=== PATIENT | male | born 1945 | race Asian ===

== ENCOUNTER 2018-07-23 23:25 | Emergency (ER) | payer MEDICARE, MEDICAID ==
[~2018-07-23] VITALS: Ht 154.9 cm; Wt 58.4 kg
[2018-07-23 23:31] VITALS: BP 170/72
[2018-07-23] MEDS ORDERED: meclizine 12.5mg tablet PO ONE (23:45)
[2018-07-23] MEDS ORDERED: ondansetron 4mg rapidly disintigrating tab PO ONE (23:45)
[2018-07-24] MEDS ORDERED: MECL-111 PO (00:13)
[2018-07-24] MEDS ORDERED: ONDA4TAB9 PO (00:13)
== END 2018-07-24 01:08 | disposition home or self-care (01) ==
LOC: ER 23:26
DX: R42 Dizziness and giddiness (principal); Z79.899 Other long term (current) drug therapy
CPT/HCPCS: 99283; J8597

== ENCOUNTER 2020-08-22 11:24 | Emergency (ER) | payer MEDICARE, MEDICAID ==
[~2020-08-22] VITALS: Ht 167.6 cm; Wt 56.0 kg
[~2020-08-22 11:24] MED LIST: MECL-159 PO
== END 2020-08-22 12:39 | disposition home or self-care (01) ==
LOC: ER 11:25
DX: R05 Cough (principal); M79.10 Myalgia, unspecified site; R42 Dizziness and giddiness; E11.9 Type 2 diabetes mellitus without complications; Z20.828 Contact with and (suspected) exposure to other viral communicable diseases
CPT/HCPCS: 99282